=== PATIENT | female | born 1960 | race African-American/Black ===

== ENCOUNTER 2020-06-29 09:36 | Emergency (ER) | payer SELFPAY | END 2020-06-29 10:15 | disposition home or self-care (01) | LOC: CSHERS 09:36 | DX: M25.511 Pain in right shoulder (principal); M25.512 Pain in left shoulder; I10 Essential (primary) hypertension; M19.90 Unspecified osteoarthritis, unspecified site; Z79.891 Long term (current) use of opiate analgesic | CPT/HCPCS: 99282 ==

== ENCOUNTER 2022-12-27 08:39 | Emergency (ER) | payer SELFPAY | END 2022-12-27 09:36 | disposition home or self-care (01) | LOC: CSHERS 08:39 | DX: M79.604 Pain in right leg (principal); I10 Essential (primary) hypertension ==